=== PATIENT | female | born 1970 | race African-American/Black ===

== ENCOUNTER 2019-05-18 14:10 | Inpatient (IN) | payer MEDICAID, OTHER ==
[~2019-05-18] VITALS: Ht 170.2 cm; Wt 90.7 kg
[2019-05-18 15:02] LABS: BASOPHILS % 0.9 % (0.0-2.0); EOSINOPHILS % 1.8 % (0.0-5.0); HEMOGLOBIN. 13.7 g/dL (12.0-16.0); LYMPHOCYTES % 34.5 % (20.0-50.0); MEAN CORPUSCULAR HEMOGLOBIN 29.4 pg (28.0-32.0); MEAN CORPUSCULAR VOLUME 88.2 fL (81.0-99.0); MEAN PLATELET VOLUME 8.3 fl (7.4-10.4); MONOCYTES % 9.5 % (2.0-8.0); NEUTROPHILS % 53.3 % (40.0-76.0); PLATELET 193 x1000/uL (130-400); RED BLOOD CELL COUNT 4.65 mill/uL (4.2-5.4); RED CELL DISTRIBUTION WIDTH 15.4 % (11.6-14.6)
[2019-05-18 15:03] LABS: CLARITY URINE CLEAR (CLEAR); COLOR URINE YELLOW (YELLOW); KETONES URINE NEGATIVE (NEGATIVE); LEUKOCYTE ESTERASE URINE 2+ (NEGATIVE); NITRITE URINE NEGATIVE (NEGATIVE); OCCULT BLOOD URINE NEGATIVE (NEGATIVE); PH URINE 6.5 (4.5-8.0); PROTEIN URINE NEGATIVE (NEGATIVE); SPECIFIC GRAVITY URINE 1.003 (1.005-1.030); UROBILINOGEN URINE 0.2 E.U./dL (0.2-1.0)
[2019-05-18 15:08] LABS: CHLORIDE 109 mEq/L (98-107)
[2019-05-18 15:13] LABS: ETHANOL BLOOD 208 mg/dL
[2019-05-18] MEDS ORDERED: ASPIRIN 325MG EC TABLET PO ONE (15:15)
[2019-05-18 15:17] LABS: *AMPHETAMINES SCREEN URINE NEGATIVE (NEGATIVE); *BARBITURATES SCREEN URINE NEGATIVE (NEGATIVE); *BENZODIAZEPINES SCREEN URINE NEGATIVE (NEGATIVE); *COCAINE SCREEN URINE NEGATIVE (NEGATIVE); LDL CHOLESTEROL 156 mg/dL (5-100); METHADONE URINE SCREEN NEGATIVE (NEGATIVE); OPIATES URINE SCREEN NEGATIVE (NEGATIVE); PHENCYCLIDINE URINE SCREEN NEGATIVE (NEGATIVE)
[2019-05-18] MEDS ORDERED: KETOROLAC 30MG/ML VIAL IV ONE (15:30)
[2019-05-18] MEDS ORDERED: METOCLOPRAMIDE HCL 10MG/2ML VIAL IV ONE (15:30)
[2019-05-18 15:34] LABS: CANNABINOID URINE SCREEN NEGATIVE (NEGATIVE)
[2019-05-18 15:43] LABS: HCG SCREEN NEGATIVE
[2019-05-18] MEDS ORDERED: IOHEXOL-300 100 ML BOTTLE ONE (16:51)
[2019-05-18] MEDS ORDERED: ONDANSETRON HCL 4MG/2ML INJ IV PRN (20:00)
[2019-05-18] MEDS ORDERED: HYDROCODONE/ACETAMINOPHEN 5/325MG TABLET PO PRN (20:00)
[2019-05-18] MEDS ORDERED: DOCUSATE SODIUM 100MG CAPSULE PO PRN (20:00)
[2019-05-18] MEDS ORDERED: ACETAMINOPHEN 650MG/20.3ML UDC GT PRN (20:00)
[2019-05-18] MEDS ORDERED: ACETAMINOPHEN 650MG SUPP PR PRN (20:00)
[2019-05-18] MEDS ORDERED: CLONIDINE 0.1MG TABLET PO PRN (20:00)
[2019-05-18] MEDS ORDERED: IPRATROPIUM/ALBUTEROL 0.5-3(2.5)MG/3ML NEB HHN PRN (20:00)
[2019-05-18] MEDS ORDERED: NA PHOS,M-B/NA PHOS,DI-BA ENEMA 118ML PR PRN (20:00)
[2019-05-18] MEDS ORDERED: SODIUM CHLORIDE 0.9% 1,000 ML IV SCH (20:00)
[2019-05-18] MEDS ORDERED: DIPHENHYDRAMINE 50MG/ML VIAL IV PRN (20:00)
[2019-05-18] MEDS ORDERED: ACETAMINOPHEN 325MG TABLET PO PRN (20:00)
[2019-05-18] MEDS ORDERED: MAGNESIUM/ALUMINUM HYDROXIDE/SIMETHICONE 30ML UDC PO PRN (20:00)
[2019-05-18] MEDS ORDERED: GUAIFENESIN 200MG/10ML SUGAR FREE UDC PO PRN (20:00)
[2019-05-18 21:10] VITALS: BP 117/69
[2019-05-18] MEDS ORDERED: ENOXAPARIN 40MG/0.4ML SYR SUBCUT SCH (22:00)
[2019-05-18] MEDS: SODIUM CHLORIDE 0.9% INJ 3ML FLUSH IVF SCH (23:35)
[2019-05-19] VITALS: BP 97/54
[2019-05-19 04:00] VITALS: BP 105/51
[2019-05-19] MEDS: SODIUM CHLORIDE 0.9% INJ 3ML FLUSH IVF SCH (06:02)
[2019-05-19 06:44] LABS: BASOPHILS % 0.5 % (0.0-2.0); HEMOGLOBIN. 12.3 g/dL (12.0-16.0); LYMPHOCYTES % 38.1 % (20.0-50.0); MEAN CORPUSCULAR HEMOGLOBIN 29.5 pg (28.0-32.0); MEAN CORPUSCULAR VOLUME 88.5 fL (81.0-99.0); MEAN PLATELET VOLUME 8.9 fl (7.4-10.4); MONOCYTES % 12.2 % (2.0-8.0); NEUTROPHILS % 45.2 % (40.0-76.0); PLATELET 165 x1000/uL (130-400); RED BLOOD CELL COUNT 4.18 mill/uL (4.2-5.4)
[2019-05-19 07:43] LABS: CHLORIDE 109 mEq/L (98-107)
[2019-05-19] MEDS ORDERED: PNEUMOCOCCAL 23-VAL P-SAC VAC 0.5 ML IM ONE (08:00)
[2019-05-19 08:04] LABS: LDL CHOLESTEROL 137 mg/dL (5-100)
[2019-05-19 08:06] LABS: HDL CHOLESTEROL 94 mg/dL (40-59)
[2019-05-19 08:39] VITALS: BP 139/73
[2019-05-19] MEDS ORDERED: INFLUENZA VIRUS VACCINE(AFLURIA) 0.5ML SYR IM ONE (10:00)
== END 2019-05-19 09:03 | disposition left against medical advice (07) | DRG 47 ==
LOC: ER 14:10 → EDBEDREQSVC 17:13 → EDBEDREQ 17:13 → 8WST 17:15 → ENRESERV 19:55
PROVIDERS: ADMIT Family Medicine; ATTEND Family Medicine
DX: G45.9 Transient cerebral ischemic attack, unspecified (principal); F17.210 Nicotine dependence, cigarettes, uncomplicated; F32.9 Major depressive disorder, single episode, unspecified; R47.81 Slurred speech; Z79.899 Other long term (current) drug therapy
CPT/HCPCS: 36415; 70460; 71045; 80061; 80305; 80320; 81003; 82962; 83721; 84484; 84703; 93005; 96374; 99291; J1650; J1885; J2765; Q9967; G0480

== ENCOUNTER 2019-05-24 13:39 | Emergency (ER) | payer MEDICAID, OTHER ==
[~2019-05-24] VITALS: Ht 170.2 cm; Wt 81.9 kg
[2019-05-24] MEDS ORDERED: IOHEXOL-350 100 ML BOTTLE ONE (14:56)
[2019-05-24 15:15] LABS: BASOPHILS % 0.6 % (0.0-2.0); EOSINOPHILS % 1.6 % (0.0-5.0); HEMATOCRIT. 38.9 % (36.0-48.0); HEMOGLOBIN. 12.9 g/dL (12.0-16.0); LYMPHOCYTES % 31.3 % (20.0-50.0); MEAN CORPUSCULAR HEMOGLOBIN 29.6 pg (28.0-32.0); MEAN CORPUSCULAR VOLUME 89.1 fL (81.0-99.0); MONOCYTES % 10.4 % (2.0-8.0); NEUTROPHILS % 56.1 % (40.0-76.0); PLATELET 199 x1000/uL (130-400); RED BLOOD CELL COUNT 4.37 mill/uL (4.2-5.4); RED CELL DISTRIBUTION WIDTH 16.1 % (11.6-14.6)
[2019-05-24 15:19] LABS: CHLORIDE 108 mEq/L (98-107); PROTHROMBIN TIME 10.3 sec (9.6-11.0)
[2019-05-24 15:24] LABS: ETHANOL BLOOD 170 mg/dL
[2019-05-24 15:25] LABS: HCG SCREEN INDETERMINATE
[2019-05-24 15:26] LABS: LDL CHOLESTEROL 154 mg/dL (5-100)
[2019-05-24 16:20] VITALS: BP 120/85
== END 2019-05-24 16:24 | disposition left against medical advice (07) ==
LOC: ER 13:39 → CANBEDREQ 17:20
DX: R47.81 Slurred speech (principal); F17.200 Nicotine dependence, unspecified, uncomplicated; F32.9 Major depressive disorder, single episode, unspecified
CPT/HCPCS: 36415; 70450; 70496; 71045; 80053; 80320; 82962; 83721; 84484; 84703; 85025; 85610; 93005; 99284; Q9967; G0480

== ENCOUNTER 2019-06-06 11:48 | Emergency (ER) | payer MEDICAID ==
[~2019-06-06] VITALS: Ht 167.6 cm; Wt 78.0 kg
[2019-06-06] MEDS ORDERED: SODIUM CHLORIDE 0.9% 1,000 ML IV ONE (13:55)
[2019-06-06 14:00] VITALS: BP 123/69
[2019-06-06] MEDS ORDERED: METOCLOPRAMIDE HCL 10MG/2ML VIAL IV ONE (14:00)
[2019-06-06 14:39] LABS: BASOPHILS % 1.1 % (0.0-2.0); EOSINOPHILS % 1.2 % (0.0-5.0); HEMATOCRIT. 42.5 % (36.0-48.0); HEMOGLOBIN. 14.2 g/dL (12.0-16.0); LYMPHOCYTES % 35.8 % (20.0-50.0); MEAN CORPUSCULAR HEMOGLOBIN 29.8 pg (28.0-32.0); MEAN CORPUSCULAR VOLUME 89.6 fL (81.0-99.0); MONOCYTES % 7.2 % (2.0-8.0); NEUTROPHILS % 54.7 % (40.0-76.0); PLATELET 275 x1000/uL (130-400); RED BLOOD CELL COUNT 4.75 mill/uL (4.2-5.4); RED CELL DISTRIBUTION WIDTH 16.9 % (11.6-14.6)
[2019-06-06 14:46] LABS: HCG SCREEN INDETERMINATE
[2019-06-06 14:52] LABS: CHLORIDE 112 mEq/L (98-107)
[2019-06-06 15:07] LABS: ETHANOL BLOOD 305 mg/dL
== END 2019-06-06 14:52 | disposition left against medical advice (07) ==
LOC: ER 11:52
DX: R51 Headache (principal); F10.129 Alcohol abuse with intoxication, unspecified; Y90.8 Blood alcohol level of 240 mg/100 ml or more
CPT/HCPCS: 36415; 80053; 80320; 81025; 84703; 85025; 99283; J7030; J2765; G0480

== ENCOUNTER 2019-10-03 11:51 | Emergency (ER) | payer SELFPAY ==
[~2019-10-03] VITALS: Ht 167.6 cm; Wt 63.0 kg
[2019-10-03 11:53] VITALS: BP 132/86
== END 2019-10-03 16:44 | disposition home or self-care (01) ==
LOC: ER 11:51
DX: F41.0 Panic disorder [episodic paroxysmal anxiety] (principal); D86.9 Sarcoidosis, unspecified; F10.129 Alcohol abuse with intoxication, unspecified; Y90.9 Presence of alcohol in blood, level not specified; R05 Cough
CPT/HCPCS: 71045; 99283

== ENCOUNTER 2019-10-17 13:12 | Emergency (ER) | payer SELFPAY ==
[~2019-10-17] VITALS: Ht 172.7 cm; Wt 64.0 kg
[2019-10-17 13:22] VITALS: BP 129/77
== END 2019-10-17 14:30 | disposition left against medical advice (07) ==
LOC: ER 13:12
DX: F10.120 Alcohol abuse with intoxication, uncomplicated (principal); Z53.21 Procedure and treatment not carried out due to patient leaving prior to being seen by health care provider; Y90.9 Presence of alcohol in blood, level not specified

== ENCOUNTER 2021-12-24 15:42 | Emergency (ER) | payer OTHER ==
[~2021-12-24] VITALS: Ht 170.2 cm; Wt 77.0 kg
[2021-12-24 15:56] VITALS: BP 115/74
== END 2021-12-24 17:11 | disposition left against medical advice (07) ==
LOC: ER 15:42
DX: Z53.21 Procedure and treatment not carried out due to patient leaving prior to being seen by health care provider (principal)

== ENCOUNTER 2023-12-31 18:27 | Emergency (ER) | payer MEDICAID, OTHER ==
[~2023-12-31] VITALS: Ht 170.2 cm; Wt 70.0 kg
[2023-12-31 18:34] VITALS: BP 143/82; PULSE 102; RESP 16; TEMP 98.4; O2SAT 99
[2023-12-31] MEDS ORDERED: DIPHENHYDRAMINE 50MG/ML VIAL IM ONE (19:30)
[2023-12-31] MEDS ORDERED: HALOPERIDOL LACTATE 5MG/ML VIAL IM ONE (19:30)
[2023-12-31] MEDS ORDERED: LORAZEPAM 2MG/ML INJ IM ONE (19:30)
== END 2023-12-31 20:28 | disposition home or self-care (01) ==
LOC: ER 18:27
DX: R45.1 Restlessness and agitation (principal); F10.129 Alcohol abuse with intoxication, unspecified; F32.A Depression, unspecified; I10 Essential (primary) hypertension; Z98.890 Other specified postprocedural states; Y90.9 Presence of alcohol in blood, level not specified
CPT/HCPCS: 99283